=== PATIENT | male | born 1950 | race Caucasian/White ===

== ENCOUNTER 2019-02-14 12:55 | Day surgery (SDC) | payer MEDICARE, OTHER ==
[2019-02-12 11:39] LABS: BASOPHILS % 0.6 % (0.0-1.0); EOSINOPHILS # (AUTO) 0.2 (0.0-0.4); EOSINOPHILS % 3.8 % (0.0-6.0); HEMATOCRIT 43.1 % (38.2-49.6); HEMOGLOBIN 14.7 g/dL (14.0-18.0); LYMPHOCYTES # (AUTO) 2.3 (1.0-3.2); LYMPHOCYTES % 36.1 % (18.0-39.1); MEAN CORPUSCULAR HEMOGLOBIN 32.9 pg (28-32); MEAN CORPUSCULAR HGB CONC 34.1 g/dL (31-35); MEAN CORPUSCULAR VOLUME 96.4 fL (81-99); MONOCYTES # (AUTO) 0.7 (0.2-0.8); MONOCYTES % 10.4 % (4.4-11.3); NEUTROPHILS # (AUTO) 3.1 (2.1-6.9); NEUTROPHILS % 48.8 % (38.7-80.0); PLATELET COUNT 180 x10e3/uL (140-360); RED BLOOD COUNT 4.47 x10e6/uL (4.3-5.7); RED CELL DISTRIBUTION WIDTH 12.8 % (11.7-14.4)
[2019-02-12 11:45] LABS: INR 0.9; PROTHROMBIN TIME 12.6 seconds (11.9-14.5)
[2019-02-12 11:53] LABS: ALANINE AMINOTRANSFERASE 23 IU/L (0-55); ALBUMIN/GLOBULIN RATIO 1.3 (0.8-2.0); ALKALINE PHOSPHATASE 80 IU/L (40-150); ANION GAP 13.2 mmol/L (8-16); BLOOD UREA NITROGEN 11 mg/dL (7-26); BUN/CREATININE RATIO 14 (6-25); CARBON DIOXIDE 25 mmol/L (22-29); CHLORIDE 103 mmol/L (98-107); CREATININE, SERUM 0.81 mg/dL (0.72-1.25); EST GLOMERULAR FILTRATION RATE > 60 ML/MIN (60-); GLUCOSE 78 mg/dL (74-118); POTASSIUM 4.2 mmol/L (3.5-5.1); SODIUM 137 mmol/L (136-145)
[~2019-02-14] VITALS: Ht 170.2 cm; Wt 67.1 kg
[~2019-02-14 12:55] MED LIST: ASPIR 8181 MG PO; LIPITOR40 MG PO
[2019-02-14] MEDS ORDERED: HEPARIN SOD/SOD CHLORIDE 2,000 ML ONE (14:04)
[2019-02-14] MEDS ORDERED: LIDOCAINE HCL 2% LOCAL 20 ML VIAL ONE (14:04)
[2019-02-14] MEDS ORDERED: IOPAMIDOL 370 MG/ML 200 ML INFUS..BTL INJ ONE (14:05)
[2019-02-14] MEDS ORDERED: SODIUM CHLORIDE 0.9% 1000ML 1,000 ML ONE (14:05)
[2019-02-14] MEDS ORDERED: MIDAZOLAM HCL 2 MG/2 ML VIAL ONE ×2 (14:08→15:19)
[2019-02-14] MEDS ORDERED: FENTANYL CITRATE/PF 100MCG/2 ML INJ ONE (14:08)
[2019-02-14] MEDS ORDERED: BIVALRIUDIN 250 MG/VIAL VIAL IV ONE (15:05)
[2019-02-14] MEDS ORDERED: SODIUM CHLORIDE 0.9% 50ML 50 ML ONE (15:05)
[2019-02-14] MEDS ORDERED: ASPIRIN 325 MG TAB ONE (15:21)
[2019-02-14] MEDS ORDERED: PRASUGREL 10 MG TAB ONE (15:21)
[2019-02-14 15:43] VITALS: BP 100/70
--- NOTE | 2019-02-14 15:43 | NUR ---
Report provided to Za Mesa RN, review of procedural findings and medications given. Patient drowsy, easily aroused. maintains airway and room air saturations of 96-98%. No gross issues of pressure, pain, pallor or dysrhythmia. IV site patent with NS 0.9% at KVO by gravity and Angiomax 250mg/50ml @ 23.5 ml/hr via pump. patient hemodynamically stable with hemostasis right groin dressing CDI w/o s/s of bleeding. [facility] transported to [facility] [place] procedure: Diagnostic LHC, coroanry angiography, abdominal aortagram with runoff, stent to coronary artery Sheath puller: XXXXX Meds Given Intra-Procedure Sedatives Versed - 3 mg Fentanyl - 75 mcg Anticoagulants Angiomax - 50 mg bolus, gtt @ 23.5ml/hr Fluids Input - 400ml Output - dtv Contrast Isovue 370- 135ml Other Meds Effient 60mg PO Aspirin 325mg PO nitro IC per
--- NOTE | 2019-02-14 15:43 | NUR ---
9204w Bedside report received from Nasir SHERIDAN. Alert oriented and appropriate, PERRLA, respirations even and unlabored to room air. Pulses x4 extremities equal and strong. Pedal pulses PT/DP x4 Cap fill brisk < 3 sec. Skin warm and dry integrity appears. IV 20g to left wrist presents healthy w/o s/s of infiltration or complaint. Abdomen soft and supple. pt offered toileting, denies need to urinate or defecate. No personal affects with patient. Family st bedside Pt and family verbalizes understanding of POC Currently w/o complaint of pain or need. Ordered tele observation bed ordered Stent x1 Rt Angioseal NO sign hematoma or bleeding. ds/rn
[2019-02-14 16:00] VITALS: BP 111/80
[2019-02-14 16:15] VITALS: BP 112/66
[2019-02-14 16:30] VITALS: BP 117/63
[2019-02-14 17:00] VITALS: BP 115/66
[2019-02-14 17:30] VITALS: BP 117/63
--- NOTE | 2019-02-14 19:51 | NUR ---
Pt meets DC criteria. right groin assessed for s/s of complication and presence of hematoma. Overall skin warm, dry, no discolor, and pulses present. IV removed from left forearm. Distal tip appears intact. VS WNL. Pt denies pain, sob, or need at this time. Family at bedside. Review of discharge paperwork and follow up instructions. verbalized understanding. Pt to wheelchair and transported to front of hospital. Transferred to private vehicle under own strength w/o incident with DC paperwork in hand. - cgf
--- NOTE | 2019-02-16 11:36 | Operative Report ---
DATE OF PROCEDURE: 02/14/2019 SURGEON: Hank Jordan MD INDICATIONS: 1. Coronary artery disease, abnormal stress test. 2. Peripheral arterial disease with claudication of both lower extremities. PROCEDURES PERFORMED: 1. Left heart catheterization, selective coronary angiography. 2. PTCA and stent placement to the mid circumflex artery. 3. Abdominal aortogram. 4. Bilateral lower extremity angiograms. 5. Selective catheter placement from the right femoral artery, left superficial femoral artery. 6. Deployment of right femoral artery Angio-Seal closure device. RECOMMENDATIONS: Dual antiplatelet therapy for life, staged intervention on bilateral femoral arteries for stenosis. BLOOD LOSS: Minimal. DESCRIPTION OF PROCEDURE: Access obtained in the right femoral artery. A 6-Luxembourgish sheath was placed. Diagnostic coronary angiogram revealed mild disease in the left main and left anterior descending artery 50% stenosis. Stent in the circumflex artery was widely patent. The distal end of the stent had a 90% stenosis. Right coronary artery stent was widely patent. Mid right coronary artery 50% stenosis. LV end-diastolic pressure of 10. No gradient across the aortic valve on pullback. Abdominal aortogram was performed with mild disease in the abdominal aorta. Right common iliac stent was patent. Left common iliac, 50% stenosis. The proximal femoral arteries were patent. Distal vessels could not be seen. The catheter was then advanced from the right femoral artery to left superficial femoral artery (third-order) catheter placement, 90% stenosis of bilateral distal femoral arteries were noted. Two-vessel runoff in both legs. A decision was made to intervene on the circumflex artery. The patient received intravenous Angiomax for anticoagulation. The left main was cannulated using an XB3.5 guiding catheter. A short wire was advanced across the lesion for support. Primary stent 2.25 x 12 mm Resolute Daniel deployed at 14 atmospheres. Excellent end result, less than 10% residual stenosis, GUILHERME-3 flow. No complications. Right groin repaired using Angio-Seal closure device. The patient was discharged home same day. MD ZAKI Galeano/MODL /[id number]
[2019-03-14] MEDS ORDERED: PLAVIX75 MG PO (13:08)
== END 2019-02-14 19:51 | disposition home or self-care (01) ==
LOC: CATH LAB 12:55 → UNDOADMOB 16:40 → PACU V 16:40
PROVIDERS: ATTEND Internal Medicine Interventional Cardiology
DX: I25.10 Atherosclerotic heart disease of native coronary artery without angina pectoris (principal); I70.213 Atherosclerosis of native arteries of extremities with intermittent claudication, bilateral legs; R94.39 Abnormal result of other cardiovascular function study; E78.49 Other hyperlipidemia; R42 Dizziness and giddiness; F17.210 Nicotine dependence, cigarettes, uncomplicated; Z01.812 Encounter for preprocedural laboratory examination; Z79.82 Long term (current) use of aspirin
CPT/HCPCS: 36247; 75625; 75710; 93458; C9600; 36415; 75716; 80053; 85025; 85610; 92928; C1725; C1760; C1769; C1874; C1887; J0583; J2001; J2250; J3010; J7030; Q9967

== ENCOUNTER → 2019-03-14 | Day surgery (SDC) | payer MEDICARE, OTHER ==
[2019-03-12 15:31] LABS: BASOPHILS % 0.5 % (0.0-1.0); EOSINOPHILS # (AUTO) 0.3 (0.0-0.4); EOSINOPHILS % 4.6 % (0.0-6.0); HEMATOCRIT 42.9 % (38.2-49.6); HEMOGLOBIN 14.2 g/dL (14.0-18.0); LYMPHOCYTES % 32.2 % (18.0-39.1); MEAN CORPUSCULAR HEMOGLOBIN 31.9 pg (28-32); MEAN CORPUSCULAR HGB CONC 33.1 g/dL (31-35); MEAN CORPUSCULAR VOLUME 96.4 fL (81-99); MONOCYTES # (AUTO) 0.5 (0.2-0.8); MONOCYTES % 8.6 % (4.4-11.3); NEUTROPHILS # (AUTO) 3.4 (2.1-6.9); NEUTROPHILS % 53.9 % (38.7-80.0); PLATELET COUNT 199 x10e3/uL (140-360); RED BLOOD COUNT 4.45 x10e6/uL (4.3-5.7); RED CELL DISTRIBUTION WIDTH 13.1 % (11.7-14.4)
[2019-03-12 15:41] LABS: INR 0.92; PROTHROMBIN TIME 12.9 seconds (11.9-14.5)
[2019-03-12 15:52] LABS: ALANINE AMINOTRANSFERASE 23 IU/L (0-55); ALBUMIN/GLOBULIN RATIO 1.4 (0.8-2.0); ALKALINE PHOSPHATASE 79 IU/L (40-150); ANION GAP 13.7 mmol/L (8-16); BLOOD UREA NITROGEN 9 mg/dL (7-26); BUN/CREATININE RATIO 11 (6-25); CALCIUM 9.9 mg/dL (8.4-10.2); CARBON DIOXIDE 25 mmol/L (22-29); CHLORIDE 104 mmol/L (98-107); CREATININE, SERUM 0.84 mg/dL (0.72-1.25); EST GLOMERULAR FILTRATION RATE > 60 ML/MIN (60-); GLUCOSE 75 mg/dL (74-118); POTASSIUM 3.7 mmol/L (3.5-5.1); SODIUM 139 mmol/L (136-145)
[~2019-03-14] VITALS: Ht 170.2 cm; Wt 67.1 kg
[2019-03-14] VITALS (19 sets, daily range): BP systolic 100–155; BP diastolic 56–86
[~2019-03-14] MED LIST changes: +ASPIRIN 325 MG TAB ONE; +ATROPINE SULFATE 0.1 MG/ML 10ML SYR ONE; +FENTANYL CITRATE/PF 100MCG/2 ML INJ ONE; +HEPARIN SOD (PORCINE) 1000 UNIT/ML 30ML ONE; +HEPARIN SOD/SOD CHLORIDE 2,000 ML ONE; +IOPAMIDOL 300MG/ML 100 ML INFUS..BTL IV ONE; +LIDOCAINE HCL 2% LOCAL 20 ML VIAL ONE; +MIDAZOLAM HCL 2 MG/2 ML VIAL ONE; +NITROGLYCERIN/D5W 200 MCG/ML 250 ML ONE; +PLAVIX75 MG PO; +PRASUGREL 10 MG TAB ONE; +SODIUM CHLORIDE 0.9% 1000ML 1,000 ML ONE; +SODIUM CHLORIDE 0.9% 50ML 50 ML ONE; +VERAPAMIL HCL 2.5 MG/ML 2 ML VIAL ONE
--- OUTSIDE RECORDS SUMMARY | 2019-03-14 06:33 | XMS REPORT ---
Author Author [facility] Address Unknown Phone Unavailable Care Team Providers Care Pulling Unit Floorhand Name Role Phone Unavailable Unavailable Problems This patient has no known problems. Allergies, Adverse Reactions, Alerts This patient has no known allergies or adverse reactions. Medications This patient has no known medications. Results Test Description Test Time Test Comments Text Results Atomic Results Result Comments CT Abdomen and Pelvis w/ + w/o Contrast 2018-04-02 14:26:58 Patient: SONDRA JOHNSTON Date/Time04/02/2018 13:30 CDTReason for ExamR31.21ReportCT ABDOMEN AND PELVIS WITH AND WITHOUT CONTRASTHISTORY: R31.21COMPARISON: None.TECHNIQUE: Axial images of the abdomen and pelvis were obtained prior to and following the administration of 100 mL Isovue-300 intravenous contrast. Coronal and sagittal reformats were provided. One or more of the following dose reduction techniques were used: Automated exposure control, adjustment of the mA and/or kV according to patient size, and/or utilization of iterative reconstruction technique.FINDINGS:Lower thorax: Mild emphysematous changes are noted in the lung bases. A 4 mm calcified granuloma is seen in the left lower lobe.Hepatobiliary: A few small cysts are seen in the liver. The largest measures 1 cm in segment IV. No intra or extrahepatic biliary ductal dilatation is identified.Gallbladder: No calcified gallstones are identified. The gallbladder wall appears normal.Spleen: Unremarkable.Pancreas: Unremarkable.Adrenals: Unremarkable.Kidneys/ureters: No renal or ureteral stone is identified. No enhancing renal mass or collecting system filling defect is seen. A 7 mm hypodensity in the lower pole of the right kidney and a 5 mm hypodensity in the mid left kidney are too small to fully characterize but likely represent cysts.Bowel: No abnormal bowel wall thickening or evidence of obstruction. The appendix is normal. Moderate sigmoid diverticulosis and sigmoid wall thickening are noted. There is no pericolonic fat stranding or fluid collection.Pelvic organs/bladder: The urinary bladder shows circumferential wall thickening up to 8 mm. No bladder hematoma is identified. The prostate gland measures 4.4 x 3.2 x 4.2 cm. Central prostate calcifications are present.Vessels: Moderate atherosclerotic calcifications are seen in the aorta and iliac arteries. A patent stent is seen in the right common iliac artery.Lymph nodes: No lymphadenopathy.Peritoneum/Retroperitoneum: No ascites or free air is identified.Bones/soft tissues: Moderate degenerative disc disease is seen at L3-4, L4-5 and L5-S1. There is grade I anterolisthesis of L5 on S1.IMPRESSION:1. Nonspecific thickening of the urinary bladder wall. Differential considerations include cystitis, UTI, or chronic bladder outlet obstruction.Exam Date/Time04/02/2018 13:30 CDTReport2. No renal mass or renal stone is identified.3. Moderate sigmoid diverticulosis and mild sigmoid wall thickening. Early diverticulitis cannot be excluded. Correlate with clinical symptoms.LOCATION: R16 Final Dictated by: MD Garcia Adam FDictated DT/TM: 04/02/2018 2:16 pmSigned by: MD Garcia Adam FSigned (Electronic Signature): 04/02/2018 2:26 pm
--- NOTE | 2019-03-14 09:15 | NUR ---
0915 Bedside report received from ARVIN Crandall.Identiferx2. Alert oriented and appropriate, PERRLA, respirations even and unlabored to room air. Pulses x4 Doppler. Pedal pulses Cap fill brisk < 3 sec. Skin warm and dry integrity appears D/I IV 20g to left hand, presents healthy w/o s/s of infiltration or complaint. Abdomen soft and supple. pt offered toileting, denies need to urinate or defecate. No personal affects with patient. Family Kinjal at bedside. Pt and family verbalizes understanding of POC. Left groin sheath pull completed by Jasvir Transcript Evaluator. 15min hold with stasis NO oozing or hematoma. Bruno patch in place. cindy/rn
--- NOTE | 2019-03-14 14:00 | NUR ---
1400Pt meets DC criteria. left groin assessed for s/s of complication and presence of hematoma. warm, dry, no discolor, and pulses present. IV removed from left hand. Distal tip appears intact. VS WNL. Pt denies pain, sob, or need at this time. Family at XXXXX. Review of discharge paperwork and follow up instructions. verbalized understanding. Pt to wheelchair and transported to front of hospital. Transferred to private vehicle under own strength w/o incident with DC paperwork in hand. - ds/rn -
--- NOTE | 2019-03-14 14:27 | Operative Report ---
DATE OF PROCEDURE: 03/14/2019 SURGEON: Hank Jordan MD INDICATIONS: Peripheral arterial disease, claudication, right lower extremity. PROCEDURES PERFORMED: 1. Third-order catheter placement from the left femoral artery to right superficial femoral artery. 2. Additional third-order catheter placement from the left femoral artery to the right posterior tibial artery. 3. Atherectomy and drug-coated balloon angioplasty of the right femoral artery. 4. Secondary thrombectomy of the right femoral artery. COMPLICATIONS: None. RECOMMENDATIONS: Dual antiplatelet therapy for life. BLOOD LOSS: Minimal. DESCRIPTION OF PROCEDURE: Access obtained in the left femoral artery. A 6-Slovak sheath was placed. It was advanced to the right femoral artery, 90% distal right femoral artery stenosis, three-vessel runoff. Orbital atherectomy using a 2 mm CSI Diamondback Bonduel was performed with thrombus visible for which manual aspiration secondary thrombectomy was needed. Balloon angioplasty with a 6 mm drug-coated balloon was performed, excellent end result, less than 10% residual stenosis. No complications. Left groin sheath removed under manual pressure. The patient discharged home same day. Hank Jordan MD KSB/MODL /[id number]
--- NOTE | 2019-03-18 13:55 | Operative Report ---
DATE OF PROCEDURE: 03/14/2019 SURGEON: Hank Jordan MD INDICATION: Peripheral arterial disease. PROCEDURES PERFORMED: 1. Third-order catheter placement from the left femoral artery to the right superficial femoral artery. 2. Atherectomy and angioplasty of the right femoral artery. 3. Secondary thrombectomy of the right femoral artery. COMPLICATIONS: None. RECOMMENDATIONS: Dual antiplatelet therapy for life. DESCRIPTION OF PROCEDURE: Access obtained in the left femoral artery. The sheath was extended to the right femoral artery with 50% stenosis. The left common femoral artery with patent stent in the right femoral artery. A 90% stenosis of the right femoral artery was noted. The lesion was crossed using a Glidewire. Wire exchanged to a ViperWire. Orbital atherectomy was performed. Large amounts of visible thrombus were noted for which manual aspiration secondary thrombectomy was needed. Balloon angioplasty with a 5 mm balloon resulted in excellent result. Three-vessel runoff to the right foot. Left groin sheath was removed under manual pressure. The patient was discharged home same day. Hank Jordan MD KSB/MODL /[id number]
== END | disposition home or self-care (01) ==
LOC: CATH LAB 06:27
PROVIDERS: ATTEND Internal Medicine Interventional Cardiology
DX: I25.10 Atherosclerotic heart disease of native coronary artery without angina pectoris (principal); Z01.812 Encounter for preprocedural laboratory examination; I73.9 Peripheral vascular disease, unspecified; E78.5 Hyperlipidemia, unspecified; Z72.0 Tobacco use; R42 Dizziness and giddiness; Z82.49 Family history of ischemic heart disease and other diseases of the circulatory system
CPT/HCPCS: 36247; 36415; 37186; 37225; 75710; 80053; 85025; 85610; C1724; C1725; C1769 ×2; C1887 ×2; J1644; J2001; J2250; J3010; J7030; Q9967

== ENCOUNTER → 2022-03-09 | Day surgery (SDC) | payer MEDICARE, OTHER ==
[2022-03-07 14:44] LABS: BASOPHILS % 0.4 % (0.0-1.0); EOSINOPHILS # (AUTO) 0.2 (0.0-0.4); EOSINOPHILS % 3.2 % (0.0-6.0); HEMATOCRIT 42.8 % (38.2-49.6); HEMOGLOBIN 14.2 g/dL (14.0-18.0); LYMPHOCYTES # (AUTO) 2.3 (1.0-3.2); LYMPHOCYTES % 33.6 % (18.0-39.1); MEAN CORPUSCULAR HEMOGLOBIN 33.3 pg (28-32); MEAN CORPUSCULAR HGB CONC 33.2 g/dL (31-35); MEAN CORPUSCULAR VOLUME 100.2 fL (81-99); MONOCYTES # (AUTO) 0.6 (0.2-0.8); MONOCYTES % 8.9 % (4.4-11.3); NEUTROPHILS # (AUTO) 3.7 (2.1-6.9); NEUTROPHILS % 53.8 % (38.7-80.0); PLATELET COUNT 179 x10e3/uL (140-360); RED BLOOD COUNT 4.27 x10e6/uL (4.3-5.7); RED CELL DISTRIBUTION WIDTH 13.8 % (11.7-14.4)
[2022-03-07 15:14] LABS: ALBUMIN/GLOBULIN RATIO 1.3 (0.8-2.0); ANION GAP 14.8 mmol/L (8-16); CALCIUM 9.1 mg/dL (8.4-10.2); CHOL/HDL RATIO 1.8 (3.9-4.7); CREATININE, SERUM 0.77 mg/dL (0.72-1.25); POTASSIUM 3.8 mmol/L (3.5-5.1)
[~2022-03-09] VITALS: Ht 170.2 cm; Wt 59.0 kg
[2022-03-09] VITALS (11 sets, daily range): BP systolic 101–151; BP diastolic 64–95
[~2022-03-09] MED LIST changes: -ASPIRIN 325 MG TAB ONE; -ATROPINE SULFATE 0.1 MG/ML 10ML SYR ONE; -HEPARIN SOD (PORCINE) 1000 UNIT/ML 30ML ONE; -IOPAMIDOL 300MG/ML 100 ML INFUS..BTL IV ONE; +IOPAMIDOL 370 MG/ML 100 ML INFUS..BTL INJ ONE; +LIDOCAINE HCL 1% LOCAL INJ 20 ML VIAL ONE; -LIDOCAINE HCL 2% LOCAL 20 ML VIAL ONE; -NITROGLYCERIN/D5W 200 MCG/ML 250 ML ONE; -PRASUGREL 10 MG TAB ONE; -SODIUM CHLORIDE 0.9% 50ML 50 ML ONE
== END | disposition home or self-care (01) ==
LOC: CATH LAB 09:30
PROVIDERS: ATTEND Internal Medicine Cardiovascular Disease
DX: I25.10 Atherosclerotic heart disease of native coronary artery without angina pectoris (principal); R94.39 Abnormal result of other cardiovascular function study; E78.5 Hyperlipidemia, unspecified; I73.9 Peripheral vascular disease, unspecified; I71.4 Abdominal aortic aneurysm, without rupture; I77.9 Disorder of arteries and arterioles, unspecified; F17.210 Nicotine dependence, cigarettes, uncomplicated; Z95.5 Presence of coronary angioplasty implant and graft; Z01.812 Encounter for preprocedural laboratory examination; Z20.822 Contact with and (suspected) exposure to COVID-19; Z79.02 Long term (current) use of antithrombotics/antiplatelets; Z79.82 Long term (current) use of aspirin; Z79.899 Other long term (current) drug therapy; Z82.49 Family history of ischemic heart disease and other diseases of the circulatory system
CPT/HCPCS: 0223U; 36415; 76937; 80053; 80061; 85025; 93458; C1887; J2001; J2250; J3010; J7030; Q9967; 99152